=== PATIENT | male | born 1990 | race Caucasian/White ===

== ENCOUNTER 2018-08-03 22:37 | Emergency (ER) | payer MEDICAID ==
[2018-08-03] MEDS: DIPHTH/TET/ACEL PERTUSS (ADULT) 0.5 ML VIAL IM* (23:26)
[2018-08-03] MEDS: IBUPROFEN 800 MG TAB PO (23:27)
== END 2018-08-04 00:30 | disposition home or self-care (01) ==
LOC: FTE 22:37
DX: S61.211A Laceration without foreign body of left index finger without damage to nail, initial encounter (principal); W26.0XXA Contact with knife, initial encounter; Y92.9 Unspecified place or not applicable; Z23 Encounter for immunization
CPT/HCPCS: 90471; 90715; 99283-25